=== PATIENT | female | born 1950 | race Caucasian/White ===

== ENCOUNTER 2022-03-14 22:37 | Inpatient (IN) | payer OTHER ==
[~2022-03-14] VITALS: Ht 162.6 cm; Wt 79.4 kg
[~2022-03-14 22:37] MED LIST: CLOPIDOGREL75 MG PO; DEX4 GLUCOSE4 GM PO; HUMALOG 10100 UNITS/ SC; JANUMET XR 50-1 EACH PO; LASIX20 MG PO; LEVEMIR FL100 UNIT/1 SQ; LEVOTHYROXINE112 MCG PO; NITROSTAT0.4 MG SL; TRICOR 145 MG145 MG PO
[2022-03-14 23:19] LABS: RED BLOOD COUNT 3.99 M/UL (4.00-5.10)
[2022-03-14 23:42] LABS: BUN/CREATININE RATIO 67 (0-10)
[2022-03-15] MEDS ORDERED: AMLODIPINE BESYL5 MG PO (12:26)
[2022-03-15] MEDS ORDERED: VITAMIN C500 M4 PO (12:28)
[2022-03-15] MEDS ORDERED: ASPIRIN EC81 MG PO (12:29)
[2022-03-15] MEDS ORDERED: ATORVASTATIN CA20 MG PO (12:30)
[2022-03-15] MEDS ORDERED: BACLOFEN10 MG PO (12:33)
[2022-03-15] MEDS ORDERED: VITAMIN D21250 MCG PO (12:34)
[2022-03-15] MEDS ORDERED: IBU800 MG PO (12:35)
[2022-03-15] MEDS ORDERED: METOPROLOL SUCC25 MG PO (12:38)
[2022-03-15] MEDS ORDERED: MELATONIN5 M2 PO (12:38)
[2022-03-15] MEDS ORDERED: NOVOLOG FL100 UNIT/1 INJ (12:40)
[2022-03-15] MEDS ORDERED: PROTONIX40 MG PO (12:43)
[2022-03-15] MEDS ORDERED: ZINC50 M3 PO (12:44)
[2022-03-15] MEDS ORDERED: SENNOSIDES-DOC1 EACH PO (12:44)
[2022-03-15] MEDS ORDERED: TYLENOL325 MG PO (12:46)
[2022-03-15] MEDS ORDERED: MIRALAX 119 GR119 GM PO (12:47)
[2022-03-16 03:53] LABS: HEMOGLOBIN 10.3 gm/dl (12.3-15.3); RED BLOOD COUNT 3.81 M/UL (4.00-5.10)
[2022-03-16 04:02] LABS: BUN/CREATININE RATIO 42 (0-10)
[2022-03-17 02:27] LABS: HEMOGLOBIN 10.8 gm/dl (12.3-15.3); RED BLOOD COUNT 3.92 M/UL (4.00-5.10); WHITE BLOOD COUNT 6.8 K/UL (4.5-11.0)
[2022-03-17 02:49] LABS: BUN/CREATININE RATIO 33 (0-10)
[2022-03-18 02:20] LABS: HEMOGLOBIN 10.1 gm/dl (12.3-15.3); RED BLOOD COUNT 3.71 M/UL (4.00-5.10); WHITE BLOOD COUNT 6.9 K/UL (4.5-11.0)
[2022-03-18 03:01] LABS: BUN/CREATININE RATIO 37 (0-10)
[2022-03-20 02:49] LABS: HEMOGLOBIN 10.8 gm/dl (12.3-15.3); RED BLOOD COUNT 3.96 M/UL (4.00-5.10); WHITE BLOOD COUNT 7.5 K/UL (4.5-11.0)
[2022-03-20 03:15] LABS: BUN/CREATININE RATIO 48 (0-10)
--- NOTE | 2022-03-20 16:05 | NUR ---
[facility] CALLED AND STATES THEY WILL SEND A CREW THIS WAY
== END 2022-03-20 17:06 | DRG 71 ==
LOC: ER1 22:37 → CDU 03-15 06:22 → M/S 03-15 06:22
PROVIDERS: Internal Medicine; Physician Assistant; Physician Assistant Medical; ADMIT Internal Medicine
DX: G93.41 Metabolic encephalopathy (principal); M86.8X7 Other osteomyelitis, ankle and foot; N39.0 Urinary tract infection, site not specified; Z20.822 Contact with and (suspected) exposure to COVID-19; E86.0 Dehydration; G20 Parkinson's disease; I25.10 Atherosclerotic heart disease of native coronary artery without angina pectoris; I95.9 Hypotension, unspecified; E11.69 Type 2 diabetes mellitus with other specified complication; E03.9 Hypothyroidism, unspecified; E11.621 Type 2 diabetes mellitus with foot ulcer; Z79.4 Long term (current) use of insulin; Z74.01 Bed confinement status; Z79.01 Long term (current) use of anticoagulants; Z79.82 Long term (current) use of aspirin; Z89.512 Acquired absence of left leg below knee; Z86.73 Personal history of transient ischemic attack (TIA), and cerebral infarction without residual deficits; I25.2 Old myocardial infarction; Z98.890 Other specified postprocedural states; Z98.891 History of uterine scar from previous surgery; Z90.710 Acquired absence of both cervix and uterus; Z83.3 Family history of diabetes mellitus; Z88.5 Allergy status to narcotic agent; Z88.2 Allergy status to sulfonamides; Z88.8 Allergy status to other drugs, medicaments and biological substances
CPT/HCPCS: 36415; 70450; 70551; 71045; 80048; 80053; 81001; 82140; 82550; 82553; 82803; 82962; 83605; 83735; 84100; 84484; 85025; 85027; 85610; 85652; 85730; 86140; 87040; 87086; 92526; 92610; 93005; 96361; 96374; 97162; 97167; 99285; A6212; G0378; J0692; J1650